=== PATIENT | female | born 1985 | race Hispanic/Latino ===

== ENCOUNTER 2023-02-03 12:33 | Day surgery (SDC) | payer OTHER ==
[2023-02-03] MEDS ORDERED: Acetaminophen 500 MG TAB ONE (12:53)
[2023-02-03] MEDS ORDERED: Iron Sucrose Complex 500 MG in Sodium Chloride 0.9% 250 ML 250 ML IVPB SCH (13:00)
[2023-02-03] MEDS ORDERED: Acetaminophen 500 MG TAB PO SCH (13:00)
== END 2023-02-03 17:38 | disposition home or self-care (01) ==
LOC: CSHSDC/OP 12:33
PROVIDERS: ATTEND Student in an Organized Health Care Education/Training Program
DX: O99.019 Anemia complicating pregnancy, unspecified trimester (principal); D64.9 Anemia, unspecified; Z3A.00 Weeks of gestation of pregnancy not specified
CPT/HCPCS: J1756; J7050

== ENCOUNTER 2023-02-07 13:29 | Day surgery (SDC) | payer OTHER ==
[~2023-02-07 13:29] MED LIST: Iopamidol 370 76% 100 ML VIAL ONE
[2023-02-07 14:38] LABS: #Eosinphils 0.1 10x3/uL (0.0-0.5); #Monocytes 0.8 10x3/uL (0.0-1.1); #Neutrophils 10.5 10x3/uL (1.5-8.4); %Basophils 0.2 % (0.0-2.0); %Eosinophils 0.6 % (0.0-6.0); %Lymphocytes 13.1 % (18.0-47.0); %Monocytes 5.7 % (0.0-10.0); Hemoglobin 9.8 g/dL (12.0-15.5); Mean Corpuscular HGB CONC 33.7 g/dL (32.0-36.0); Mean Corpuscular Volume 83.1 fl (81.6-98.3); Mean Platelet Volume 10.3 fl (7.4-10.4); Platelet Count 372 10x3/uL (150-450); RBC Distribution Width 13.3 % (11.5-14.5); White Blood Cell (WBC) Count 13.1 10x3/uL (3.5-10.5)
[2023-02-07 14:55] LABS: ALT (SGPT) 44 U/L (8-55); AST (SGOT) 29 U/L (5-34); Albumin 3.3 g/dL (3.5-5.0); Alkaline Phosphatase 156 U/L (40-110); Anion Gap 15 mmol/L (10-20); BUN (Urea Nitrogen) 7 mg/dL (7.0-18.7); Bilirubin, Total 0.2 mg/dL (0.2-1.2); Calc. Creatinine Clearance 0 mL/min (70-130); Calcium 8.5 mg/dL (7.8-10.44); Carbon Dioxide 17 mmol/L (22-29); Chloride 109 mmol/L (98-107); Estimated GFR 116; Globulin 2.8 g/dL (2.4-3.5); Glucose 111 mg/dL (70-105); Lipase 21 U/L (8-78); Protein, Total 6.1 g/dL (6.0-8.3); Sodium 137 mmol/L (136-145)
[2023-02-07] MEDS ORDERED: hydrALAZINE 20 MG/ML VIAL SLOW IVP PRN (17:49)
[2023-02-07 19:22] VITALS: BMI 42.5
[2023-02-07 19:59] LABS: Creatinine, Urine 64.75 mg/dL (47-110)
== END 2023-02-07 20:00 | disposition home or self-care (01) ==
LOC: CSHERS 13:29 → CSHLD/OP 17:23
PROVIDERS: ATTEND Obstetrics & Gynecology
DX: O16.3 Unspecified maternal hypertension, third trimester (principal); O99.013 Anemia complicating pregnancy, third trimester; D64.9 Anemia, unspecified; Z3A.35 35 weeks gestation of pregnancy; Z79.899 Other long term (current) drug therapy
CPT/HCPCS: 71275; 80053; 82570; 83690; 83880; 84156; 84484; 85025; 85379; 93005; 99282; Q9967

== ENCOUNTER 2023-02-09 09:16 | Day surgery (SDC) | payer OTHER ==
[2023-02-09] MEDS ORDERED: Acetaminophen 500 MG TAB ONE (09:28)
[2023-02-09] MEDS ORDERED: Acetaminophen 500 MG TAB PO SCH (09:30)
[2023-02-09] MEDS ORDERED: Iron Sucrose Complex 500 MG in Sodium Chloride 0.9% 250 ML 250 ML IVPB SCH (09:30)
== END 2023-02-09 14:00 | disposition home or self-care (01) ==
LOC: CSHSDC/OP 09:16
PROVIDERS: ATTEND Student in an Organized Health Care Education/Training Program
DX: O99.019 Anemia complicating pregnancy, unspecified trimester (principal); D64.9 Anemia, unspecified; Z3A.00 Weeks of gestation of pregnancy not specified
CPT/HCPCS: J1756; J7050

== ENCOUNTER 2023-02-10 15:25 | Inpatient (IN) | payer MEDICAID, OTHER ==
[2023-02-10] MEDS ORDERED: hydrALAZINE 20 MG/ML VIAL SLOW IVP PRN ×3 (16:54→21:56)
[2023-02-10 19:22] LABS: Fetal Membranes Rupture No Membranes Rupture (No Rupture)
[2023-02-10] MEDS ORDERED: Tranexamic Acid 1,000 MG/10 ML VIAL IVP PRN (21:50)
[2023-02-10] MEDS ORDERED: Carboprost 250 MCG/ML AMP IM PRN (21:50)
[2023-02-10] MEDS ORDERED: Promethazine HCl 25 MG/ML VIAL IM PRN (21:50)
[2023-02-10] MEDS ORDERED: Ondansetron PF 4 MG/2 ML Vial IVP PRN (21:50)
[2023-02-10] MEDS ORDERED: Misoprostol 200 MCG TAB PR PRN (21:50)
[2023-02-10] MEDS ORDERED: Bicitra 30 ML UDCUP PO PRN (21:54)
[2023-02-10] MEDS ORDERED: Famotidine/PF 20 mg/2ml Vial SLOW IVP PRN (21:54)
[2023-02-10 21:56] VITALS: BMI 47.5
[2023-02-10] MEDS ORDERED: Lorazepam 2 MG/ML VIAL SLOW IVP PRN ×2 (21:56→23:47)
[2023-02-10] MEDS ORDERED: Calcium Gluc 4.6 MEQ/10 ML (100 MG/ML) SLOW IVP PRN ×2 (21:56→23:47)
[2023-02-10] MEDS ORDERED: Azithromycin 500 MG in Sodium Chloride 0.9% 250 ML 250 ML IVPB SCH (22:00)
[2023-02-10] MEDS ORDERED: CEFAZOLIN 2 GM in Sodium Chloride 0.9% 100 ML IVPB SCH (22:00)
[2023-02-10] MEDS ORDERED: Magnesium Sulfate 20 gm/500 ml 20 GM/500 ML BAG IVPB SCH (22:00)
[2023-02-10] MEDS ORDERED: NS w/ Oxytocin 30 units 500 ML IV SCH (22:00)
[2023-02-10] MEDS: hydrALAZINE 20 MG/ML VIAL SLOW IVP PRN ×3 (22:24→23:16)
[2023-02-10] MEDS ORDERED: hydrOXYzine 25 MG TAB PO PRN (23:01)
[2023-02-10 23:24] LABS: #Eosinphils 0.1 10x3/uL (0.0-0.5); #Monocytes 0.8 10x3/uL (0.0-1.1); #Neutrophils 11.1 10x3/uL (1.5-8.4); %Basophils 0.2 % (0.0-2.0); %Eosinophils 0.8 % (0.0-6.0); %Lymphocytes 17.4 % (18.0-47.0); %Monocytes 5.2 % (0.0-10.0); %Neutrophils 75.7 % (40.0-75.0); Hematocrit 31.2 % (34.9-44.5); Hemoglobin 10.5 g/dL (12.0-15.5); Mean Corpuscular HGB CONC 33.7 g/dL (32.0-36.0); Mean Corpuscular Hemoglobin 28.1 pg (27.0-33.0); Mean Corpuscular Volume 83.4 fl (81.6-98.3); Mean Platelet Volume 10.3 fl (7.4-10.4); Platelet Count 377 10x3/uL (150-450); RBC Distribution Width 15.1 % (11.5-14.5); Red Blood Cell (RBC) Count 3.74 10x6/uL (3.90-5.03); White Blood Cell (WBC) Count 14.6 10x3/uL (3.5-10.5)
[2023-02-10 23:32] LABS: ALT (SGPT) 29 U/L (8-55); AST (SGOT) 19 U/L (5-34); Albumin 3.4 g/dL (3.5-5.0); Alkaline Phosphatase 148 U/L (40-110); Anion Gap 17 mmol/L (10-20); BUN (Urea Nitrogen) 8 mg/dL (7.0-18.7); Bilirubin, Total 0.2 mg/dL (0.2-1.2); Calc. Creatinine Clearance 251 mL/min (70-130); Carbon Dioxide 15 mmol/L (22-29); Chloride 107 mmol/L (98-107); Estimated GFR 119; Globulin 2.9 g/dL (2.4-3.5); Glucose 90 mg/dL (70-105); Potassium 3.7 mmol/L (3.5-5.1); Protein, Total 6.3 g/dL (6.0-8.3); Sodium 135 mmol/L (136-145)
[2023-02-10 23:47] LABS: HBSAg Index 0.18 S/CO (0-0.99); Hep B Surf Ag - L&D Non-Reactive S/CO (NonReactive); Syphilis Antibody Nonreactive (Nonreactive); Syphilis Antibody Index 0.04 S/CO (<1.00 Non-Reactive)
[2023-02-10] MEDS ORDERED: NIFEdipine 10 MG CAP PO PRN ×2 (23:47)
[2023-02-10] MEDS: Lactated Ringer's 1,000 ML IV SCH (23:58)
[2023-02-10] MEDS ORDERED: NIFEdipine 10 MG CAP PO SCH (23:59)
[2023-02-11] MEDS ORDERED: NIFEdipine XL 30 MG TAB PO SCH ×2 (00:45→20:15)
[2023-02-11] MEDS ORDERED: Calcium Carbonate 500 MG ChewTAB PO PRN (00:47)
[2023-02-11 02:32] LABS: Creatinine, Urine 74.99 mg/dL (47-110)
[2023-02-11] MEDS ORDERED: Acetaminophen 500 MG TAB PO PRN (07:15)
[2023-02-11] MEDS ORDERED: CEFAZOLIN 2 GM VIAL ONE (08:43)
[2023-02-11] MEDS ORDERED: Bupivacaine/Epinephrine 0.25% 30 ML VIAL ONE (10:51)
[2023-02-11] MEDS ORDERED: Dexmedetomidine 200 MCG/2 ML VIAL ONE (10:55)
[2023-02-11] MEDS ORDERED: Oxytocin 10 UNITS/ML VIAL ONE ×2 (11:55→13:10)
[2023-02-11] MEDS ORDERED: PHENYLEPHRINE-NS 100 MCG/ML 10 ML SYRINGE ONE (11:55)
[2023-02-11] MEDS ORDERED: Phenylephrine 40 MG/NS 250 ML 250 ML ONE (11:55)
[2023-02-11] MEDS ORDERED: Ondansetron PF 4 MG/2 ML Vial ONE (12:02)
[2023-02-11] MEDS ORDERED: Metoclopramide HCl 10 MG/2 ML VIAL ONE (12:14)
[2023-02-11] MEDS ORDERED: Promethazine HCl 25 MG/ML VIAL ONE (12:19)
[2023-02-11] MEDS ORDERED: Dexamethasone 4 mg/ml Vial ONE ×2 (12:19→12:55)
[2023-02-11 13:09] LABS: pH (Cord, venous) 7.316 (7.250-7.350)
[2023-02-11] MEDS ORDERED: Acetaminophen 325 MG TAB PO PRN (14:02)
[2023-02-11] MEDS ORDERED: HYDROcodone/Acetaminophen 5/325 mg Tablet PO PRN (14:02)
[2023-02-11] MEDS ORDERED: Boostrix 0.5 ML (Tdap) VIAL (>/=7 yrs of age) IM ONE (14:02)
[2023-02-11] MEDS ORDERED: Lanolin Ointment 7 GM TUBE TOP PRN (14:02)
[2023-02-11] MEDS ORDERED: hydrALAZINE 20 MG/ML VIAL SLOW IVP PRN (14:02)
[2023-02-11] MEDS ORDERED: Ondansetron PF 4 MG/2 ML Vial IVP PRN ×2 (14:02→14:16)
[2023-02-11] MEDS ORDERED: Fentanyl 100 MCG/2 ML VIAL SLOW IVP PRN (14:16)
[2023-02-11] MEDS ORDERED: diphenhydrAMINE 50 MG/ML VIAL IVP PRN (14:16)
[2023-02-11] MEDS ORDERED: Naloxone HCl 0.4 mg/ml Vial IVP PRN ×2 (14:16)
[2023-02-11] MEDS ORDERED: Meperidine HCl/PF 25 MG/ML VIAL SLOW IVP PRN (14:16)
[2023-02-11] MEDS ORDERED: Naloxone HCl 0.4 mg/ml Vial IV PRN (14:16)
[2023-02-11] MEDS ORDERED: Promethazine HCl 25 MG/ML VIAL IM PRN (14:16)
[2023-02-11] MEDS ORDERED: Moisturizing Cream (Eucerin) 113 GM JAR TOP PRN (14:16)
[2023-02-11] MEDS ORDERED: Ondansetron HCl/PF 4 MG/2 ML Vial IVP PRN (14:16)
[2023-02-11] MEDS ORDERED: Promethazine HCl 25 MG SUPP PR PRN (14:16)
[2023-02-11] MEDS ORDERED: Ketorolac Tromethamine 30 MG/ML VIAL IVP SCH (14:30)
[2023-02-11] MEDS ORDERED: Communication Order-Pharmacy FS SCH (14:30)
[2023-02-11 16:30] LABS: D-Dimer Test 6.21 mg/L FEU (0.19-0.50); INR-International Normal Ratio 0.9; PTT 25.9 sec (22.0-33.0); Prothrombin Time 9.5 sec (9.5-12.1)
[2023-02-11] MEDS: Ketorolac Tromethamine 30 MG/ML VIAL IVP PRN (16:47)
[2023-02-11 18:13] LABS: Hematocrit 29.4 % (34.9-44.5); Hemoglobin 9.9 g/dL (12.0-15.5); Mean Corpuscular HGB CONC 33.7 g/dL (32.0-36.0); Mean Corpuscular Hemoglobin 28.6 pg (27.0-33.0); Mean Platelet Volume 10.7 fl (7.4-10.4); Platelet Count 347 10x3/uL (150-450); RBC Distribution Width 15.2 % (11.5-14.5); Red Blood Cell (RBC) Count 3.46 10x6/uL (3.90-5.03); White Blood Cell (WBC) Count 21.7 10x3/uL (3.5-10.5)
[2023-02-11] MEDS ORDERED: Ferrous Sulfate 325 MG TAB PO SCH (21:00)
[2023-02-11] MEDS ORDERED: Morphine 4 MG/ML VIAL SLOW IVP PRN (21:13)
[2023-02-11] MEDS ORDERED: Morphine 4 MG/ML VIAL ONE (21:20)
[2023-02-11] MEDS ORDERED: Ibuprofen 800 MG TAB PO SCH (22:00)
[2023-02-12] MEDS: Ketorolac Tromethamine 30 MG/ML VIAL IVP PRN ×2 (00:24→07:20)
[2023-02-12] MEDS ORDERED: HYDROcodone/Acetaminophen 5/325 mg Tablet PO PRN (02:30)
[2023-02-12 04:02] LABS: Hemoglobin 8.5 g/dL (12.0-15.5); Mean Corpuscular HGB CONC 32.7 g/dL (32.0-36.0); Mean Corpuscular Hemoglobin 28.3 pg (27.0-33.0); Mean Corpuscular Volume 86.7 fl (81.6-98.3); Mean Platelet Volume 10.8 fl (7.4-10.4); Platelet Count 344 10x3/uL (150-450); RBC Distribution Width 15.5 % (11.5-14.5); White Blood Cell (WBC) Count 18.3 10x3/uL (3.5-10.5)
[2023-02-12 04:28] LABS: ALT (SGPT) 32 U/L (8-55); AST (SGOT) 28 U/L (5-34); Albumin 2.8 g/dL (3.5-5.0); Alkaline Phosphatase 120 U/L (40-110); Anion Gap 13 mmol/L (10-20); BUN (Urea Nitrogen) 10 mg/dL (7.0-18.7); Bilirubin, Total 0.3 mg/dL (0.2-1.2); Calc. Creatinine Clearance 220 mL/min (70-130); Calcium 7.1 mg/dL (7.8-10.44); Carbon Dioxide 16 mmol/L (22-29); Chloride 108 mmol/L (98-107); Estimated GFR 115; Globulin 2.8 g/dL (2.4-3.5); Glucose 98 mg/dL (70-105); Potassium 4.2 mmol/L (3.5-5.1); Protein, Total 5.6 g/dL (6.0-8.3); Sodium 133 mmol/L (136-145)
[2023-02-12] MEDS ORDERED: NIFEdipine XL 30 MG TAB PO SCH (09:00)
[2023-02-12] MEDS: Simethicone Chewable 80 MG TAB PO PRN ×2 (09:00→16:35)
[2023-02-12] MEDS: Ferrous Sulfate 325 MG TAB PO SCH (09:00)
[2023-02-12] MEDS: HYDROcodone/Acetaminophen 5/325 mg Tablet PO PRN ×3 (13:30→22:58)
[2023-02-12] MEDS: Lactated Ringer's 1,000 ML IV SCH ×2 (15:13→15:14)
[2023-02-12] MEDS: Prenatal Vitamin 1 TAB PO SCH (15:14)
[2023-02-12] MEDS: Ibuprofen 800 MG TAB PO SCH (16:30)
[2023-02-12] MEDS ORDERED: Ibuprofen 800 MG TAB PO SCH (22:00)
[2023-02-13] MEDS: Ibuprofen 800 MG TAB PO SCH ×4 (00:08→23:13)
[2023-02-13] MEDS: HYDROcodone/Acetaminophen 5/325 mg Tablet PO PRN ×3 (06:33→23:13)
[2023-02-13 08:10] LABS: Hematocrit 23.9 % (34.9-44.5); Hemoglobin 7.7 g/dL (12.0-15.5); Platelet Count 313 10x3/uL (150-450)
[2023-02-13 08:26] LABS: ALT (SGPT) 35 U/L (8-55); AST (SGOT) 23 U/L (5-34); Alkaline Phosphatase 118 U/L (40-110); Anion Gap 14 mmol/L (10-20); BUN (Urea Nitrogen) 16 mg/dL (7.0-18.7); Bilirubin, Total 0.2 mg/dL (0.2-1.2); Calc. Creatinine Clearance 231 mL/min (70-130); Calcium 7.7 mg/dL (7.8-10.44); Carbon Dioxide 17 mmol/L (22-29); Chloride 108 mmol/L (98-107); Estimated GFR 117; Globulin 2.8 g/dL (2.4-3.5); Glucose 93 mg/dL (70-105); Potassium 3.8 mmol/L (3.5-5.1); Protein, Total 5.8 g/dL (6.0-8.3); Sodium 135 mmol/L (136-145)
[2023-02-13] MEDS: Prenatal Vitamin 1 TAB PO SCH (08:44)
[2023-02-13] MEDS: Ferrous Sulfate 325 MG TAB PO SCH (08:44)
[2023-02-13] MEDS ORDERED: NIFEdipine XL 30 MG TAB PO SCH (09:00)
[2023-02-14 00:08] VITALS: BP 126/59; TEMP 98.7
== END 2023-02-13 23:40 | disposition home or self-care (01) | DRG 787 ==
LOC: CSHLD/OP 15:25 → CSHLD 22:03 → CSHPP 02-12 13:30
PROVIDERS: ADMIT Obstetrics & Gynecology; ATTEND Obstetrics & Gynecology
PROC: 10D00Z1 Extraction of Products of Conception, Low, Open Approach (ICD-10-PCS; principal; 2023-02-11)
DX: O41.03X0 Oligohydramnios, third trimester, not applicable or unspecified (principal); O10.92 Unspecified pre-existing hypertension complicating childbirth; O72.1 Other immediate postpartum hemorrhage; Z3A.35 35 weeks gestation of pregnancy; Z37.0 Single live birth; Z79.899 Other long term (current) drug therapy; D50.9 Iron deficiency anemia, unspecified; O99.02 Anemia complicating childbirth; Z90.49 Acquired absence of other specified parts of digestive tract; O34.211 Maternal care for low transverse scar from previous cesarean delivery; Z88.8 Allergy status to other drugs, medicaments and biological substances; O11.4 Pre-existing hypertension with pre-eclampsia, complicating childbirth; O99.892 Other specified diseases and conditions complicating childbirth; N73.6 Female pelvic peritoneal adhesions (postinfective); P02.5 Newborn affected by other compression of umbilical cord; E66.9 Obesity, unspecified; O99.214 Obesity complicating childbirth; E83.51 Hypocalcemia; O99.285 Endocrine, nutritional and metabolic diseases complicating the puerperium
CPT/HCPCS: 36415; 51702; 76819; 80053; 82570; 82805; 84112; 84156; 85014; 85018; 85027; 85049; 85300; 85362; 85379; 85384; 85610; 85730; 86780; 86850; 86900; 86901; 87340; 99285; J0360; J1100; J1885; J2270; J2405; J2550; J2590; J2765; J3475

== ENCOUNTER 2023-03-29 20:49 | Emergency (ER) | payer MEDICAID, SELFPAY ==
[2023-03-29 22:12] LABS: Bilirubin Neg (Negative); Blood, Urine 25 (Negative); Clarity Clear (Clear); Glucose, Urine (Dipstick) Normal (Negative); Ketone, Urine Negative (Negative); Leukocyte Negative (Negative); Nitrite Negative (Negative); Protein, Urine (Dipstick) 15 mg/dl (Neg-Trace); Urobilinogen Normal mg/dL (Less than 2)
[2023-03-29 22:29] LABS: #Basophils 0.1 10x3/uL (0.0-0.2); #Eosinphils 0.3 10x3/uL (0.0-0.5); #Monocytes 0.5 10x3/uL (0.0-1.1); #Neutrophils 5.6 10x3/uL (1.5-8.4); %Basophils 0.6 % (0.0-2.0); %Eosinophils 3.1 % (0.0-6.0); %Lymphocytes 25.2 % (18.0-47.0); %Monocytes 6.1 % (0.0-10.0); %Neutrophils 64.8 % (40.0-75.0); Hematocrit 32.6 % (34.9-44.5); Hemoglobin 10.8 g/dL (12.0-15.5); Mean Corpuscular HGB CONC 33.1 g/dL (32.0-36.0); Mean Corpuscular Hemoglobin 27.1 pg (27.0-33.0); Mean Corpuscular Volume 81.9 fl (81.6-98.3); Mean Platelet Volume 9.6 fl (7.4-10.4); Platelet Count 502 10x3/uL (150-450); RBC Distribution Width 16.1 % (11.5-14.5); Red Blood Cell (RBC) Count 3.98 10x6/uL (3.90-5.03); White Blood Cell (WBC) Count 8.6 10x3/uL (3.5-10.5)
[2023-03-29 22:38] LABS: Bacteria/HPF None Seen HPF (None Seen); CAUTI Indications for Culture Dysuria,urgency,freq; RBC/HPF 0-3 HPF (0-3); WBC/HPF None Seen HPF (0-3)
[2023-03-29 22:40] LABS: Urine Culture Reflex No No
[2023-03-29 22:41] LABS: ALT (SGPT) 28 U/L (8-55); AST (SGOT) 16 U/L (5-34); Albumin 4.1 g/dL (3.5-5.0); Alkaline Phosphatase 93 U/L (40-110); Anion Gap 12 mmol/L (10-20); BUN (Urea Nitrogen) 12 mg/dL (7.0-18.7); Bilirubin, Total 0.2 mg/dL (0.2-1.2); Calc. Creatinine Clearance 0 mL/min (70-130); Calcium 9.3 mg/dL (7.8-10.44); Carbon Dioxide 25 mmol/L (22-29); Chloride 103 mmol/L (98-107); Estimated GFR 59; Globulin 3.4 g/dL (2.4-3.5); Glucose 99 mg/dL (70-105); Potassium 3.4 mmol/L (3.5-5.1); Protein, Total 7.5 g/dL (6.0-8.3); Sodium 137 mmol/L (136-145)
== END 2023-03-29 23:34 | disposition home or self-care (01) ==
LOC: CSHERS 20:49
DX: R10.9 Unspecified abdominal pain (principal); I10 Essential (primary) hypertension; Z79.899 Other long term (current) drug therapy
CPT/HCPCS: 36415; 74176; 80053; 81001; 85025